=== PATIENT | female | born 1975 | race Two or more races ===

== ENCOUNTER → 2024-09-14 | Outpatient (CLI) | payer MEDICAID, SELFPAY ==
--- NOTE | 2024-09-14 | XR_ITS ---
Examination: Left knee 2 views TECHNIQUE: Examination: AP lateral left knee 2 views Exam date and time: September 14, 2024 1330 hours INDICATIONS: Left knee pain beginning one week ago. FINDINGS: Mild osteopenia No fracture or dislocation No knee effusion IMPRESSION: No fracture or significant arthritic change
== END | disposition home or self-care (01) ==
LOC: CDIM 12:00
PROVIDERS: PCP Physician Assistant; Referring Provider Physician Assistant; Visit Provider Physician Assistant
DX: M25.562 Pain in left knee (principal)
CPT/HCPCS: 73560

== ENCOUNTER → 2024-10-02 | Outpatient (CLI) | payer MEDICAID, SELFPAY ==
--- NOTE | 2024-10-02 09:36 | XR_ITS ---
Examination: Sacroiliac joints 3 views TECHNIQUE: AP, MARROQUIN ARMENIAN sacroiliac joints 3 views Exam date and time: October 02, 2024 1033 hours INDICATIONS: Sacroiliac joint pain 5 years FINDINGS: Moderate sacroiliitis, sclerosis about the SI joints No fracture Symmetrical sacral foramina IMPRESSION: Moderate sacroiliitis
--- NOTE | 2024-10-02 09:36 | XR_ITS ---
Examination: Lumbar spine, 5 views Technique: Lumbar spine AP, lateral, coned lateral lower lumbar spine, bilateral obliques 5 views Exam date and time: October 02, 2024 1018 hours INDICATIONS: Lower back pain radiating down the right leg beginning 5 years ago. FINDINGS: Moderate osteopenia Lumbar levoscoliosis 12 degrees Mild diffuse facet arthropathy No lumbar fracture No significant lumbar disc narrowing IMPRESSION: No lumbar fracture No significant lumbar disc narrowing
== END | disposition home or self-care (01) ==
LOC: CDIM 09:19
PROVIDERS: PCP Physician Assistant; Referring Provider Physician Assistant; Visit Provider Physician Assistant
DX: M54.41 Lumbago with sciatica, right side (principal); M46.1 Sacroiliitis, not elsewhere classified
CPT/HCPCS: 72110; 72202

== ENCOUNTER → 2024-12-26 | Outpatient (CLI) | payer MEDICAID, SELFPAY ==
--- NOTE | 2024-12-26 13:15 | XR_ITS ---
Examination: Screening digital mammography, bilateral Computer aided detection 3-D breast Tomosynthesis, bilateral Date and time of exam: 03/28/2025 1327 hours Compared to mammograms dating to July 18, 2018 Indication: Screening Technique: Nonmagnified MLO, CC views of the breasts to been obtained, reconstructed from 3-D Tomosynthesis images. R2 computer aided detection program utilized for evaluation of suspicious masses and/or abnormal calcifications. 3-D Tomosynthesis images obtained. Findings: Scattered areas of fibroglandular density. Benign calcifications. No interval suspicious masses Impression: BI-RADS category II: Benign Findings. Recommend 1 year follow-up mammogram.
== END | disposition home or self-care (01) ==
PROVIDERS: PCP Physician Assistant; Referring Provider Physician Assistant; Visit Provider Physician Assistant
DX: Z12.31 Encounter for screening mammogram for malignant neoplasm of breast (principal); R92.323 Mammographic fibroglandular density, bilateral breasts; R92.1 Mammographic calcification found on diagnostic imaging of breast
CPT/HCPCS: 77063; 77067